=== PATIENT | female | born 1985 | race Caucasian/White ===

== ENCOUNTER → 2016-06-13 | Outpatient (CLI) | payer OTHER ==
--- NOTE | 2016-06-13 09:59 | REP ---
OB ULTRASOUND: Real-time sonographic evaluation of the gravid uterus performed. There is a single living intrauterine gestation with estimated gestational age of 20 weeks 1 day based on LMP with EDC 10/30/2016. Today's measurements indicate appropriate growth. BPD 48 mm 20 weeks 4 days, 63rd percentile HC 177 mm 20 weeks 1 day, 51st percentile AC 150 mm 20 weeks 1 day, 52nd percentile FL 29 mm 18 weeks 6 days, 19th percentile HC/AC ratio 1.18 within normal range. Estimated weight 307 grams, 33rd percentile. Cervix closed and measures 3.2 cm in length. heart rate 136 beats per minute. SEEN/GROSSLY UNREMARKABLE Lateral ventricles Yes Posterior fossa Yes Upper lip Yes Four-chamber heart Yes LVOT Yes RVOT Yes Stomach Yes Cord insertion No Three vessel cord No Kidneys Yes Bladder Yes Spine Yes position breech. Placenta anterior and to the left, grade 0 with no previa or abruption. Amniotic fluid within normal limits.
== END ==
LOC: M WHC 08:24
PROVIDERS: ATTEND Obstetrics & Gynecology
DX: Z36 Encounter for antenatal screening of mother (principal)

== ENCOUNTER → 2016-06-13 | Outpatient (CLI) | payer OTHER | LOC: M SMT 09:25 | PROVIDERS: ATTEND Obstetrics & Gynecology | DX: Z36 Encounter for antenatal screening of mother (principal) ==

== ENCOUNTER → 2016-06-28 | Outpatient (CLI) | payer OTHER ==
--- NOTE | 2016-06-28 10:36 | REP ---
Clinical: Anatomical evaluation. Comparison: 06/13/2016 . Findings: Examination demonstrates a single live intrauterine in breech presentation. motion is identified by technologist. Placenta is noted anteriorly and grade zero without evidence for placenta previa or abruption. Amniotic fluid volume is normal. Cervix measures 4.2 cm in length and appears closed. No evidence for nuchal cord. Gestational age by first ultrasound 22 weeks 2 days with VIKAS 10/30/2016 . FHR equals 144 beats per minute. Anatomical assessment demonstrates normal structures including cavum, cerebellum/posterior fossa, facial features, lungs, four-chamber heart, stomach, cord insertion/three-vessel cord, kidneys/bladder, and extremities. Impression: Single live intrauterine in breech presentation. In conjunction with prior examination anatomical assessment is complete and normal.
== END ==
LOC: M WHC 09:33
PROVIDERS: ATTEND Obstetrics & Gynecology
DX: Z36 Encounter for antenatal screening of mother (principal); Z3A.22 22 weeks gestation of pregnancy